=== PATIENT | male | born 1965 | race Two or more races ===

== ENCOUNTER 2017-05-28 22:53 | Observation (INO) | payer OTHER ==
[2017-05-28 23:14] LABS: PLATELET COUNT 264 10^3/uL (150-400)
--- NOTE | 2017-05-28 23:19 | EDPHY ---
H & P Stated Complaint: NAUSEA, WEAKNESS, DIZZY, X5 HRS Time Seen by Provider: 05/28/17 23:09 HPI/ROS: CHIEF COMPLAINT: Nausea dizzy "I do not feel well " HISTORY OF PRESENT ILLNESS: 51-year-old male generally healthy with no cardiac history, no chronic abdominal or GI history states that since waking this morning is been feeling not well described as feeling nausea without vomiting, dizziness, myalgias. Describes the dizziness as worse with movement of his his head, sudden onset when he woke up. Symptoms better if he closes his eyes. No upper respiratory infection like symptoms such as coughing, sore throat, congestion. No influenza vaccination. No abdominal pain. Urinary habits normal. Bowel movements normal. No melena hematochezia. No hearing loss. No tinnitus. No barotrauma. No otorrhea. No recent URI symptoms. No gait instability. No slurred speech. No headache. No trauma. No history of neck or head manipulation or major or minor trauma. PRIMARY CARE PROVIDER:[facility] REVIEW OF SYSTEMS: A ten point review of systems was performed and is negative with the exception of the items mentioned in the HPI PAST MEDICAL & SURGICAL HISTORY: no cardiac history. No vasculopathy history. No abdominal surgical or chronic GI history SOCIAL HISTORY:Nonsmoker. . No drug use. FAMILY HISTORY: No pertinent family history PHYSICAL EXAM (Prior to examination, patient consented to physical exam, hands were washed and my usual and customary physical exam procedures followed) 1) GENERAL: Well-developed, well-nourished, alert and oriented. Appears to be in no acute distress. 2) HEAD: Normocephalic, atraumatic 3) HEENT: Pupils equal, round, reactive to light bilaterally. Sclera anicteric. Positive nystagmus noted. Nasopharynx, oropharynx, clear, no lesions. Dry mucous membranes Ears bilaterally with normal tympanic membranes. 4) NECK: Full range of motion, no meningeal signs. No carotid bruit. No adenopathy 5) LUNGS: Clear auscultation bilaterally, no wheezes, no rhonchi, no retractions. 6) HEART: Regular rate and rhythm, no murmur, no heave, no gallop. 7) ABDOMEN: No guarding, no rebound, no focal tenderness, negative McBurney's, negative Campos's, negative Rovsing's, negative peritoneal sign, 8) MUSCULOSKELETAL: Moving all extremities, no focal areas of tenderness, no obvious trauma. No peripheral edema or discoloration. 9) BACK: No CVA tenderness, no midline vertebral tenderness, no fluctuance, no step-off, no obvious trauma, no visual or palpable abnormality. Negative Homans no palpable cord 10) SKIN: No rash, no petechiae. No lesions no vesicles. No evidence of Elier Arrieta. 11) Psychiatric: Patient is oriented X 3, there is no agitation. 12) NEURO: Awake, alert, and oriented to person, place and time. Answers questions appropriately. There were no obvious focal neurologic abnormalities. Upper and lower extremities bilaterally with strength 5 / 5, reflexes 2+. DIFFERENTIAL DIAGNOSIS: In no particular include but limited to gastroenteritis, benign positional vertigo, Meniere disease, acoustic neuroma, influenza, mi, cardiac dysrhythmia, MS, cerebellar infarction - Personal History Current Tetanus/Diphtheria Vaccine: No - Medical/Surgical History Hx Asthma: No Hx Chronic Respiratory Disease: No Hx Diabetes: No Hx Cardiac Disease: No Hx Renal Disease: No Hx Cirrhosis: No Hx Alcoholism: No Hx HIV/AIDS: No Hx Splenectomy or Spleen Trauma: No Other PMH: DENIES - Social History Smoking Status: Never smoked Constitutional: Initial Vital Signs Temperature (C) 36.6 C 05/28/17 22:55 Heart Rate 107 H 05/28/17 22:55 Respiratory Rate 24 H 05/28/17 22:55 Blood Pressure 170/112 H 05/28/17 22:55 O2 Sat (%) 99 05/28/17 22:55 O2 Delivery Mode Room Air O2 (L/minute) 2 Allergies/Adverse Reactions: No Known Allergies Allergy (Unverified 05/28/17 22:55) Home Medications: Medication Instructions Recorded NK [No Known Home Meds] 05/28/17 Medical Decision Making - Diagnostics Imaging Results: Imaging Impressions Chest X-Ray 05/28/17 23:10 Impression: No acute localizing features. Procedures: 1:00 a.m.: Procedure: Brandi maneuver Indications risks benefits discussed with patient and he consented. Brandi maneuver performed my usual and customary manner patient observed for a period of time afterward he notes improvement in symptoms. ED Course/Re-evaluation: 1:00 a.m.: Brandi maneuver performed patient notes improvement in symptoms 1:30 a.m.: Patient notes return of his vertigo symptoms. He has already been given meclizine. He will be given IV Ativan. 2:17 a.m.: Re-evaluation, he is unable to ambulate secondary to continued complaints. Will be given IV Reglan and re-evaluated 2:50 a.m.: The patient ambulated at this time, is unable to ambulate on his own , says states to staff members and he is listing to the left. Plan will be MRI , CT, admission. Case discussed with secondary supervising physician Dr. Davion Chang in the ER 3:22 a.m.: Consultation with hospitalist Dr. Marx who will admit patient. - Data Points Laboratory Results: Laboratory Results 05/28/17 23:05 05/28/17 23:05 05/28/17 05/28/17 05/28/17 23:26 23:05 23:05 WBC 13.10 10^3/uL H 10^3/uL (3.80-9.50) RBC 5.86 10^6/uL 10^6/uL (4.40-6.38) Hgb 18.5 g/dL H g/dL (13.7-17.5) Hct 51.0 % % (40.0-51.0) MCV 87.0 fL fL (81.5-99.8) MCH 31.6 pg pg (27.9-34.1) MCHC 36.3 g/dL g/dL (32.4-36.7) RDW 12.8 % % (11.5-15.2) Plt Count 264 10^3/uL 10^3/uL (150-400) MPV 10.4 fL fL (8.7-11.7) Neut % (Auto) 91.3 % H % (39.3-74.2) Lymph % (Auto) 6.0 % L % (15.0-45.0) [place] % (Auto) 2.1 % L % (4.5-13.0) Eos % (Auto) 0.0 % L % (0.6-7.6) Baso % (Auto) 0.2 % L % (0.3-1.7) Nucleat RBC Rel Count 0.0 % % (0.0-0.2) Absolute Neuts (auto) 11.95 10^3/uL H 10^3/uL (1.70-6.50) Absolute Lymphs (auto) 0.79 10^3/uL L 10^3/uL (1.00-3.00) Absolute Monos (auto) 0.28 10^3/uL L 10^3/uL (0.30-0.80) Absolute Eos (auto) 0.00 10^3/uL L 10^3/uL (0.03-0.40) Absolute Basos (auto) 0.03 10^3/uL 10^3/uL (0.02-0.10) Absolute Nucleated RBC 0.00 10^3/uL 10^3/uL (0-0.01) Immature Gran % 0.4 % % (0.0-1.1) Immature Gran # 0.05 10^3/uL 10^3/uL (0.00-0.10) Sodium 147 mEq/L H mEq/L (134-144) Potassium 3.4 mEq/L L mEq/L (3.5-5.2) Chloride 107 mEq/L mEq/L (97-110) Carbon Dioxide 19 mEq/l L mEq/l (22-31) Anion Gap 21 mEq/L H mEq/L (8-16) BUN 11 mg/dL mg/dL (7-23) Creatinine 0.8 mg/dL mg/dL (0.7-1.3) Estimated GFR > 60 Glucose 180 mg/dL H mg/dL (70-100) Calcium 10.0 mg/dL mg/dL (8.5-10.4) Total Bilirubin 0.6 mg/dL mg/dL (0.1-1.4) Conjugated Bilirubin 0.2 mg/dL mg/dL (0.0-0.5) Unconjugated Bilirubin 0.4 mg/dL mg/dL (0.0-1.1) AST 33 IU/L IU/L (17-59) ALT 41 IU/L IU/L (21-72) Alkaline Phosphatase 124 IU/L IU/L (38-126) Creatine Kinase 72 IU/L IU/L (0-224) Troponin I < 0.012 ng/mL ng/mL (0.000-0.034) NT-Pro-B Natriuret Pep 26 pg/mL pg/mL (0-125) Total Protein 8.4 g/dL H g/dL (6.3-8.2) Albumin 4.7 g/dL g/dL (3.5-5.0) Lipase 98 IU/L IU/L (23-300) Nasal Influenza A PCR NEGATIVE FOR FLU A (NEGATIVE) Nasal Influenza B PCR NEGATIVE FOR FLU B (NEGATIVE) Medications Given: Discontinued Medications Sodium Chloride (Ns) 1,000 mls @ 0 mls/hr IV ONCE ONE PRN Reason: Wide Open Stop: 05/29/17 00:28 Last Admin: 05/29/17 00:31 Dose: 1,000 mls Lorazepam (Ativan Injection) 1 mg IVP EDNOW ONE Stop: 05/29/17 01:35 Last Admin: 05/29/17 01:46 Dose: 1 mg Meclizine HCl (Meclizine Hcl) 25 mg PO EDNOW ONE Stop: 05/29/17 00:21 Last Admin: 05/29/17 00:41 Dose: 25 mg Metoclopramide HCl (Reglan Injection) 10 mg IVP EDNOW ONE Stop: 05/29/17 02:18 Last Admin: 05/29/17 02:24 Dose: 10 mg Ondansetron HCl (Zofran) 4 mg IVP EDNOW ONE Stop: 05/29/17 00:23 Last Admin: 05/29/17 00:26 Dose: 4 mg Departure - Departure Disposition: [facility] Inpatient Acute Clinical Impression: Intractable vertigo Condition: Fair Referrals: NONE *PRIMARY CARE P,. [Primary Care Provider] - As per Instructions Print Language: Tanzanian
--- NOTE | 2017-05-28 23:25 | CPEKG ---
Heart Rate: 103 RR Interval: 583 P-R Interval: 180 QRSD Interval: 92 QT Interval: 364 QTC Interval: 477 P [place]: 51 QRS [place]: -90 T Wave [place]: 11 EKG Severity - ABNORMAL ECG - EKG Impression: SINUS TACHYCARDIA EKG Impression: LAD, CONSIDER LEFT ANTERIOR FASCICULAR BLOCK EKG Impression: BORDERLINE PROLONGED QT INTERVAL Electronically Signed By: Power Bryant 29-May-2017 10:35:53
[2017-05-28 23:39] LABS: CREATINE KINASE 72 IU/L (0-224)
[2017-05-29] MEDS ORDERED: MECLIZINE HCL 25 MG TAB PO ONE (00:20)
[2017-05-29] MEDS ORDERED: ONDANSETRON 4 MG/2 ML VIAL IVP ONE (00:22)
[2017-05-29] MEDS ORDERED: NS 1,000 ML IV ONE (00:27)
[2017-05-29] MEDS ORDERED: LORazepam 2 MG/ML INJ IVP ONE (01:34)
[2017-05-29] MEDS ORDERED: METOCLOPRAMIDE 10 MG/2 ML VIAL IVP ONE (02:17)
[2017-05-29] MEDS ORDERED: ACETAMINOPHEN 325 MG TAB PO PRN (03:23)
[2017-05-29] MEDS ORDERED: ONDANSETRON 4 MG/2 ML VIAL IVP PRN (03:23)
[2017-05-29] MEDS ORDERED: HYDROCODONE/APAP 5/325 TAB PO PRN (03:28)
[2017-05-29] MEDS ORDERED: DIAZEPAM 10 MG/2 ML SYR IVP PRN (03:31)
[2017-05-29] MEDS ORDERED: GADOBUTROL 10 ML VIAL IVP ONE (04:16)
[2017-05-29] MEDS: NS W/ 20 KCl/L 1,000 ML IV SCH ×2 (05:15→15:41)
--- NOTE | 2017-05-29 06:18 | GHP ---
[f rep st] HISTORY AND PHYSICAL DATE OF ADMISSION: 05/29/2017 SOURCE: Patient is able to provide some of the history. His is at bedside as he is a little bit somnolent after receiving medications and she provides the majority of the history. Both appear reliable. CHIEF COMPLAINT: Vertigo. HISTORY OF PRESENT ILLNESS: This is a very pleasant 51-year-old gentleman with no significant past medical history. He presents to the emergency department with complaints of a whole day of significant vertigo and nausea. The patient reports that he feels like the room is spinning clockwise and he is having left ear tinnitus. He also complains of some numbness and tingling in both arms without any focal weakness. He has had nausea. No vomiting. No recent illnesses. No fevers, chills, cough, diarrhea. In the emergency department, patient received Reglan, Ativan, meclizine, and underwent Apley's maneuver with some improvement of his vertiginous symptoms. However, he continues to be unsteady in gait with leaning towards the left. He continues to require assistance with ambulation. The patient underwent imaging studies with a CT and MRI, both of which were normal. REVIEW OF SYSTEMS: Negative except as noted above. ALLERGIES: No known drug allergies. HOME MEDICATIONS: None. PAST MEDICAL HISTORY: Significant for intermittent episodes of vertigo 3 years ago. reports that these episodes, however, only lasted 20 minutes with resolution. Today, symptoms have lasted all day. The patient was diagnosed with benign essential hypertension for which he and PCP agreed to trial lifestyle changes in lieu of medications. PAST SURGICAL HISTORY: None. FAMILY HISTORY: Diabetes and hypertension in both parents. No strokes. SOCIAL HISTORY: Patient is , lives with . He does not smoke or use illicit drugs. He does drink occasional alcohol but rarely. CODE STATUS: Full. PHYSICAL EXAMINATION: VITAL SIGNS: Upon arrival to the emergency department, blood pressure 170/112, heart rate 107, respiratory rate 24, O2 saturation 99% on room air with a temperature of 36.6. Current vitals in the ER, blood pressure 148/100, heart rate 103, respiratory rate 24, O2 saturation 97% on nasal cannula. Current vitals available blood pressure is 146/102, heart rate 112, respiratory rate 16, O2 saturation 94% on 2 L by nasal cannula. Afebrile. GENERAL: No acute distress. Pleasant adult gentleman, is resting quietly in bed. He does wake to his name. is at bedside. HEAD: Normocephalic, atraumatic. EYES: Extraocular muscle testing is limited secondary to patient' s complaint of vertigo. He does have a horizontal nystagmus with preference to the left. Pupils are equal, round, and decreased reactivity to light bilaterally but symmetric. No scleral icterus or conjunctival injection. ENT: Mucous membranes appear dry. No oropharyngeal erythema or exudates. NECK: Supple. Trachea midline. CV: Slightly tachycardic in the low 100s. Regular rate and rhythm. No murmurs, rubs, or gallops appreciated. RESPIRATORY: Lungs are clear to auscultation bilaterally. No wheezes, rales, or rhonchi. Unlabored breathing. ABDOMEN: Positive bowel sounds. Soft, nontender to palpation. No rebound, guarding, or masses appreciated. : No suprapubic tenderness to palpation. No Taylor in place. EXTREMITIES: Patient without any cyanosis, clubbing, or edema appreciated. 2+ pedal pulses. NEURO: Grossly nonfocal. No facial drooping, limiting extraocular muscle testing, exam as above due to nystagmus. Moves all extremities. Strength is symmetric, bilateral upper and lower extremities. PSYCH: Patient's affect is slightly flat. Patient does appear to be fatigued and somnolent after medications. But , he is pleasant and cooperative today. LABORATORY STUDIES: WBC 13.1, H and H is 18.5 in 51.0, platelet count is 264 with a neutrophil percent of 91.3. No bands. Sodium is 147, potassium is 3.4, chloride 107, CO2 is 19, anion gap 21, BUN 11, creatinine 0.8, GFR greater than 60, glucose 182, calcium 10.0, total bilirubin 0.6, ALT is 41, AST is 33, alkaline phosphatase is 124, total bilirubin 0.6, CK is 72. Troponin is negative. BTNP 26. Total protein 8.4, albumin 4.7, lipase 98. Negative flu A/ B. IMAGING STUDY: Chest x-ray, image report reviewed, normal chest. CT head, preliminary report reviewed, negative for acute findings. Right maxillary sinus disease. MRI of the brain, preliminary report image reviewed, normal, incidental cavum septum pellucidum. EKG, reviewed myself, shows sinus tachycardia, left axis deviation. Borderline QT interval, no acute ST elevations. ASSESSMENT AND PLAN: A pleasant 51-year-old gentleman who presents with complaints of vertigo, nausea. 1. Vertigo. Suspect benign paroxysmal positional vertigo. The patient did respond with some improvement to Apley's maneuver. Will consult PT, OT as patient, although symptoms are improved, he is not able to walk independently with listing to the left. Consider repeating Eply's maneuver in the morning. CT MRI of the brain negative for any evidence of acute infarct. Possibility for symptomatic accelerated hypertension. The patient is untreated on an outpatient basis. Blood pressures, particularly diastolic, increased 140s to 150s over 100s to 110 and will likely benefit from diuretic therapy for both blood pressure and to lesser effect his vertigo after he is adequately hydrated and electrolyte replaced. 2. Benign essential hypertension as noted above. prn hydralazine for now. 3. Nausea, improved status post Reglan, Ativan, and meclizine. Will continue p.r.n. 4. Systemic inflammatory response syndrome criteria without evidence of infectious source. This is likely related to patient's dehydration and acute vertigo. We will monitor. Patient remains afebrile. His flu A and B are negative. 5. Hypernatremia. Likely secondary to volume contraction with dehydration as patient has had little oral intake and some nausea. 6. Potassium. Replacement as above. Anion gap. Will repeat in the morning a BMP after hydration. 7. Hyperglycemia. This is a nonfasting lab, but patient has had only a few sips of Sprite per the . Check a.m. BMP, fasting, and the patient can follow up with PCP. 8. Fluid, electrolyte, nutrition. Patient will be placed on half-normal saline with potassium replacement. Electrolyte replacement p.r.n. and advance diet as tolerated to cardiac low-sodium. 9. Prophylaxis. Sequential compression devices and Lovenox. The patient should stay an additional day. 10. Code status is full. 11. Disposition. Patient admitted to observation on the medical floor at this time pending improvement in his ability to ambulate independently and safely. /[id number]/MODL MTDD
[2017-05-29 07:35] LABS: PLATELET COUNT 230 10^3/uL (150-400)
[2017-05-29] MEDS: MECLIZINE HCL 25 MG TAB PO PRN ×2 (09:59→17:01)
--- NOTE | 2017-05-29 10:10 | ASMTCASEMG ---
Living Arrangements What is your living Answers: With Spouse arrangement? Who do you live with? Type Of Residence What kind of residence do Answers: House you live in? Discharge Plan Comments Coordination Status Comments Notes: Pt is a 51 y/o man admitted for intractable vertigo. Needs are TBD at this time. Therapies have been ordered and awaiting recommendations. CM to follow. Plan: TBD Date Signed: 05/29/2017 10:10 AM Electronically Signed By:SOLOMON Samuel
[2017-05-29 13:08] VITALS: RESP 16; TEMP 97.8
[2017-05-29 16:57] VITALS: BP 157/112; PULSE 110; O2SAT 93
--- NOTE | 2017-05-29 20:05 | GDS ---
[f rep st] DISCHARGE SUMMARY DISCHARGE DIAGNOSES: Include: 1. Vertigo, thought secondary to benign positional vertigo. 2. Elevated blood pressure. HISTORY OF PRESENT ILLNESS: A 51-year-old male with no significant past medical history, who present s with complaints of significant vertigo and associated nausea. For details of patient's initial pre sentation, please see the history and physical dated 05/28/2017. CONSULTATIVE SERVICES: None. PROCEDURES: MRI of the brain on 05/29/2017 shows no acute stroke or intracranial abnormality. HOSPITAL COURSE BY ISSUE: Vertigo. Patient did have nystagmus on examination. Had Brandi maneuver p erformed in the emergency department with some improvement in his symptoms. He was seen by a physica l therapist on the day of disposition, provided resources and education on ocular movements he can us e to avoid ongoing symptoms. Patient is being discharged with outpatient followup with his primary c are provider. He has been cleared by PT, is ambulating safely without assist, and safe for returning home. MEDICATIONS AT THE TIME OF DISPOSITION: Please reference the medication reconciliation printed on . FOLLOWUP APPOINTMENTS: Include in next 1-2 weeks with his outpatient provider for postdischarge foll owup. I spent greater than 30 minutes in the planning and coordination of this discharge. /[id number]/MODL
--- NOTE | 2017-05-30 09:39 | ASDISCHSUM ---
Discharge Information Plan Status:Has needs-TBD Medically Cleared to Leave: Discharge Date:05/29/2017 05:24 PM CM D/C Disposition: ADT D/C Disposition:Home, Routine, Self-Care Projected Discharge Date:05/29/2017 05:24 PM Transportation at D/C: Discharge Delay Reason: Follow-Up Date:05/29/2017 05:24 PM Discharge Slot: Final Diagnosis: Placement Information Patient Contact Information Contact Name:ANTONIA Relationship: Address:[address] [place] [address] Work Phone: City:[facility] Phone: State/Zip Code:[place] [address] Email: Financial Information Financial Class:Self-Pay Primary Plan Desc:WE CARE Primary Plan Number:99 Secondary Plan Desc: Secondary Plan Number: Assessment Information [facility] Initial CM Assessment Living Arrangements What is your living Answers: With Spouse arrangement? Who do you live with? Type Of Residence What kind of residence do Answers: House you live in? Discharge Plan Comments Coordination Status Comments Notes: Pt is a 51 y/o man admitted for intractable vertigo. Needs are TBD at this time. Therapies have been ordered and awaiting recommendations. CM to follow. Plan: TBD Date Signed: 05/29/2017 10:10 AM Electronically Signed By:SOLOMON Samuel Intervention Information
== END 2017-05-29 17:24 | disposition home or self-care (01) ==
LOC: F1N 05-29 05:01
PROVIDERS: ADMIT Family Medicine; ATTEND Family Medicine
DX: H81.10 Benign paroxysmal vertigo, unspecified ear (principal); I10 Essential (primary) hypertension; E87.0 Hyperosmolality and hypernatremia
CPT/HCPCS: 96374; 97161-GP; 97165-GO; A9585; G0378; J2060; J2405; J2765